=== PATIENT | male | born 1970 | race Caucasian/White ===

== ENCOUNTER → 2020-03-06 | Day surgery (SDC) | payer OTHER ==
[~2020-03-06] MED LIST: ASPIRIN EC81 MG PO; CELEXA20 MG PO; CLARITIN10 MG PO; COLACE100 MG PO; COREG 6.25MG6.25 MG PO; EPIPEN0.3 MG/0.3 IM; FUROSEMIDE 20MG20 MG PO; ISOSORBIDE MONO60 MG PO; LIPITOR40 MG PO; METFORMIN HCL500 MG PO; MICRONASE5 MG PO; MULTI FOR HER1 EACH PO; NITROSTAT0.4 MG SL; NORCO 5-325 TA1 EACH PO; PERCOCET 7.5/321 TAB PO; PRINIVIL20 MG PO; TIZANIDINE HCL4 M1 PO; VENTOLIN HFA IN18 GM INH
[2020-03-06 07:08] LABS: HCT 35.6 % (42.0-52.0); HGB 11.2 g/dl (13.2-18.0); MCH 28.9 pg (25.0-31.0); MCHC 31.5 g/dL (32.0-36.0); MCV 91.8 fL (78.0-100.0); RBC 3.88 M/uL (4.70-6.00); RDW 14.1 % (11.5-14.0); WBC 6.4 K/uL (4.0-10.5)
[2020-03-06 07:26] LABS: BUN/CREAT RATIO (CALC) 23.9 RATIO; CREATININE 1.17 mg/dL (0.67-1.17); POTASSIUM 4.9 mmol/L (3.5-5.1)
== END | disposition home or self-care (01) ==
LOC: FAS 06:07
PROVIDERS: Anesthesiology; Legal Medicine
DX: G56.02 Carpal tunnel syndrome, left upper limb (principal); I25.10 Atherosclerotic heart disease of native coronary artery without angina pectoris; E11.9 Type 2 diabetes mellitus without complications; E78.5 Hyperlipidemia, unspecified; I10 Essential (primary) hypertension; E88.9 Metabolic disorder, unspecified; I25.2 Old myocardial infarction; G47.33 Obstructive sleep apnea (adult) (pediatric); J45.909 Unspecified asthma, uncomplicated; E66.01 Morbid (severe) obesity due to excess calories; Z68.43 Body mass index [BMI] 50.0-59.9, adult; Z87.891 Personal history of nicotine dependence; Z79.82 Long term (current) use of aspirin; Z79.84 Long term (current) use of oral hypoglycemic drugs; Z79.899 Other long term (current) drug therapy; Z88.1 Allergy status to other antibiotic agents; Z88.5 Allergy status to narcotic agent; Z95.5 Presence of coronary angioplasty implant and graft
CPT/HCPCS: 36415; 80048; 93005; J0690; J2001; J2250; J2704; J2795; J3010; J7120

== ENCOUNTER 2021-09-15 10:39 | Emergency (ER) | payer OTHER ==
[2021-09-15] MEDS ORDERED: LEVAQUIN500 MG PO (12:36)
== END 2021-09-15 13:11 | disposition home or self-care (01) ==
LOC: FER 10:39
DX: N45.1 Epididymitis (principal); E11.9 Type 2 diabetes mellitus without complications; I10 Essential (primary) hypertension; Z88.1 Allergy status to other antibiotic agents; Z88.5 Allergy status to narcotic agent; Z79.82 Long term (current) use of aspirin; Z79.899 Other long term (current) drug therapy; Z79.84 Long term (current) use of oral hypoglycemic drugs
CPT/HCPCS: 99283

== ENCOUNTER → 2021-11-14 | Day surgery (SDC) | payer OTHER ==
[~2021-11-14] VITALS: Ht 177.8 cm; Wt 156.5 kg
[~2021-11-14] MED LIST changes: +ASPIRIN325 MG PO; +COREG12.5 MG PO; +DULERA 200 MCG8.8 GM INH; +LEVAQUIN500 MG PO; +SPIRIVA RESPIMAT4 G1 INH
[2021-11-14 08:00] LABS: HCT 40.7 % (42.0-52.0); HGB 13.4 g/dl (13.2-18.0); MCH 29.6 pg (25.0-31.0); MCHC 32.9 g/dL (32.0-36.0); MCV 89.8 fL (78.0-100.0); MPV 9.5 fL (6.0-9.5); RBC 4.53 M/uL (4.70-6.00); RDW 14.8 % (11.5-14.0); WBC 7.9 K/uL (4.0-10.5)
[2021-11-14 09:16] LABS: ALBUMIN 3.7 g/dL (3.4-5.0); BILIRUBIN - TOTAL 0.6 mg/dL (0.2-1.0); BUN/CREAT RATIO (CALC) 17.7 RATIO; CREATININE 1.24 mg/dL (0.67-1.17); GLOBULIN (CALCULATION) 3.8 g/dL; POTASSIUM 4.5 mmol/L (3.5-5.1); TOTAL PROTEIN 7.5 g/dL (6.4-8.2)
== END | disposition home or self-care (01) ==
LOC: FAS 07:17
PROVIDERS: Surgery
DX: K31.9 Disease of stomach and duodenum, unspecified (principal); K63.5 Polyp of colon; D50.0 Iron deficiency anemia secondary to blood loss (chronic); K21.9 Gastro-esophageal reflux disease without esophagitis; K29.60 Other gastritis without bleeding; K58.9 Irritable bowel syndrome, unspecified; I10 Essential (primary) hypertension; I25.2 Old myocardial infarction; J45.909 Unspecified asthma, uncomplicated; E11.9 Type 2 diabetes mellitus without complications; Z87.891 Personal history of nicotine dependence; Z88.1 Allergy status to other antibiotic agents; Z88.5 Allergy status to narcotic agent; Z79.82 Long term (current) use of aspirin
CPT/HCPCS: 36415; 80053; J1610; J2704; J7120